=== PATIENT | female | born 1990 | race Caucasian/White ===

== ENCOUNTER 2025-07-17 11:41 | Emergency (ER) | payer OTHER, SELFPAY ==
--- OUTSIDE RECORDS SUMMARY | 2025-07-17 11:47 | XMS_ITS | Encounter Summary ---
Author Organization [facility] Healthcare Address [address] [place] [address] Care Team Providers Care Clinical Documentation Specialist Name Role Phone Sparkle Dash MD Unavailable Bob Garnett MD Primary Care Provider [phone] Encounter Details Date Type Department Care Team (Late st Contact Info) Description 11/20/2023 Documentation [facility] Physical Therapy [address] [place] [id number] Puneet Watkins, PT Social History Tobacco Use Types Packs/Day Years Used Date Smoking Tobacco: Every Day Cigarettes 0.8 19.6 Started: 2005 Alcohol Use Standard Drinks/Week Comments No 0 (1 standard drink = 0.6 oz pur e alcohol) Humiliation, Afraid, Rape, and Kick questionnair e Answer Date Recorded Within the last year, have y ou been afraid of your partner or ex-partner? No 10/23/2023 Within the last year, have y ou been humiliated or emotionally abused in other ways by your partner or ex-partner? No Within the last year, have y ou been kicked, hit, slapped, or otherwise physically hurt by your partner or ex-partner? No 10/23/2023 Within the last year, have y ou been raped or forced to have any kind of sexual activity by your partner or ex-partner? No 10/23/2023 Social Connection and Isolation Panel Answer Date Recorded In a typical week, how many times do you talk on the phone with family, friends, or neighbors? More than three times a week 01/06/2023 How often do you get togethe r with friends or relatives? Once a week 01/06/2023 How often do you attend chur ch or confucianism services? Never 01/06/2023 Do you belong to any clubs o r organizations such as pentecostalism groups, unions, fraternal or athletic groups, or school groups? No 01/06/2023 How often do you attend meet ings of the clubs or organizations you belong to? Never 01/06/2023 Are you , , di vorced, , never , or living with a partner? 01/06/2023 AUDIT-C Answer Date Recorded Q1: How often do you have a drink containing alcohol? Never 10/23/2023 Q2: How many drinks containi ng alcohol do you have on a typical day when you are drinking? Patient does not drink Q3: How often do you have si x or more drinks on one occasion? Never 10/23/2023 PHQ-2 Answer Date Recorded PHQ-2 Total Score (If total score is 3 or more points, staff should administer the PHQ-9) 0 10/23/2023 Hunger Vital Sign Answer Date Recorded Within the past 12 months, y ou worried that your food would run out before you got the money to buy more. Often true 01/06/20 23 Within the past 12 months, t he food you bought just didn't last and you didn't have money to get more. Often true 01/06/2023 PRAPARE - Transportation Answer Date Re corded In the past 12 months, has l ack of transportation kept you from medical appointments or from getting medications? No 12/25 In the past 12 months, has l ack of transportation kept you from meetings, work, or from getting things needed for daily living? No 01/06/2023 Housing Stability Vital Sign Answer Mihai e Recorded In the last 12 months, was t here a time when you were not able to pay the mortgage or rent on time? Yes 01/06/2023 In the last 12 months, how many places have you lived? 1 01/06/2023 In the last 12 months, was t here a time when you did not have a steady place to sleep or slept in a usp (including now)? No 01/06/2023 Personal Safety Answer Date Recorded Have you ever been in or are you currently in a harmful physical or emotional relationship or is someone making you feel afraid or unsafe? Denies 06/11/2023 Education Answer Date Recorded What is the highest level of school you have completed or the highest degree you have received? Some college, no degree 01/06/2023 Comments Unknown Sex and Gender Information Value Date Recorded Sex Assigned at Not on file Legal Sex Female 3:45 AM CAMPUS ADMINISTRATOR Gender Identity Not on file Sexual Orientation Not on file documented as of this encounter Plan of Treatment Not on file documented as of this encounter Visit Diagnoses Not on filedocumented in this encounter Care Teams Clinical Documentation Specialist Relationship Specialty Start Date End Date Bob Garnett MD [address] [place] [address] PCP - General Family Medicine 09/25/23 Sparkle Dash MD [address] [place] [address] Consulting Physician Gastroenterology 01/09/23 documented as of this encounter
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
--- OUTSIDE RECORDS SUMMARY | 2025-07-17 11:47 | XMS_ITS | Clinical Summary ---
Author Organization [facility] Address [address] [place] [address] Phone Care Team Providers Care Real Estate Director Name Role Phone Bob Garnett MD Primary Care Provider [phone] Allergies Active Allergy Reactions Criticality Noted Date Comments Codeine Unknown 05/15/2017 Ibuprofen Other (see Comments) 05/15/2017 thins my blood and causes nose bleeds Medications cyclobenzaprine (FLEXERIL) 5 MG Tablet Take 5 mg by mouth 3 times daily as needed. Active gabapentin (NEURONTIN) 300 MG Capsule Take 300 mg by mouth 3 times daily. Active methocarbamol (ROBAXIN) 500 MG Tablet Take 500 mg by mouth 3 times daily as needed (muscle spasm). Active ibuprofen (MOTRIN) 800 MG Tablet Take 800 mg by mouth 3 times daily as needed. Active metoprolol Succinate (TOPROL-XL) 25 MG TABLET SR 24 HR Take 1 Tablet by mouth daily. 90 Tablet 01/22/2024 Active spironolactone (ALDACTONE) 25 MG Tablet Take 1 Tablet by mouth daily. 90 Tablet 06/21/2024 Active Active Problems Problem Noted Date Diagnosed Date Acute respiratory failure with hypoxia Seizure disorder 01/20/2024 H/O ETOH abuse 01/20/2024 Congenital heart disease 01/20/2024 Chronic back pain 01/20/2024 Cervical radiculopathy 01/20/2024 Depression 01/20/2024 Drug overdose of undetermined intent 01/20/2024 Severe sepsis 01/20/2024 Social History Tobacco Use Types Packs/Day Years Used Date Smoking Tobacco: Every Day Cigarettes 0.3 10 Alcohol Use Standard Drinks/Week Comments No 0 (1 standard drink = 0.6 oz pur e alcohol) [place] Utilities Answer Date Recorded In the past 12 months has e electric, gas, oil, or water company threatened to shut off services in your home? Patient unable to answer 01/20/2024 Social Connection and Isolation Panel Answer Date Recorded In a typical week, how many times do you talk on the phone with family, friends, or neighbors? Patient unable to answer 01/20/2024 How often do you get togethe r with friends or relatives? Patient unable to answer 01/20/2024 How often do you attend chur ch or restorationism services? Patient unable to answer 01/20/2024 Do you belong to any clubs o r organizations such as latter day groups, unions, fraternal or athletic groups, or school groups? Patient unable to answer 01/20/2024 How often do you attend meet ings of the clubs or organizations you belong to? Patient unable to answer 01/20/2024 Are you , , di vorced, , never , or living with a partner? Patient unable to answer 01/20/2024 AUDIT-C Answer Date Recorded Q1: How often do you have a drink containing alcohol? Patient unable to answer 01/20/2024 Q2: How many drinks containi ng alcohol do you have on a typical day when you are drinking? Patient unable to answer Q3: How often do you have si x or more drinks on one occasion? Patient unable to answer 01/20/2024 Overall Financial Resource Strain (CARDIA) Answe r Date Recorded How hard is it for you to pa y for the very basics like food, housing, medical care, and heating? Patient unable to answer 01/20/2024 [facility] - Occupational Stress Questionnaire Answer Date Recorded Do you feel stress - tense, restless, nervous, or anxious, or unable to sleep at night because your mind is troubled all the time - these days? Patient unable to answer 01/20/2024 Exercise Vital Sign Answer Date Recorde d On average, how many days pe r week do you engage in moderate to strenuous exercise (like a brisk walk)? Patient unable to answer 01/20/2024 On average, how many minutes do you engage in exercise at this level? Patient unable to answer 01/20/2024 Hunger Vital Sign Answer Date Recorded Within the past 12 months, y ou worried that your food would run out before you got the money to buy more. Patient unable to answer 01/20/2024 Within the past 12 months, t he food you bought just didn't last and you didn't have money to get more. Patient unable to answer 01/20/2024 PRAPARE - Transportation Answer Date Re corded In the past 12 months, has l ack of transportation kept you from medical appointments or from getting medications? Patient unable to answer 01/20/2024 In the past 12 months, has l ack of transportation kept you from meetings, work, or from getting things needed for daily living? Patient unable to answer 01/20/2024 Housing Stability Vital Sign Answer Mihai e Recorded In the last 12 months, was t here a time when you were not able to pay the mortgage or rent on time? Patient unable to answer 01/20/2024 Number of Places Lived in the Last Year Not on f ile 01/20/2024 In the last 12 months, was t here a time when you did not have a steady place to sleep or slept in a group home (including now)? Patient unable to answer 01/20/2024 Comments Unknown Sex and Gender Information Value Date Recorded Sex Assigned at Not on file Legal Sex Female 8:07 PM CDT Gender Identity Not on file Sexual Orientation Not on file Last Filed Vital Signs Vital Sign Reading Time Taken Comments Blood Pressure 118/78 01/29/2024 11:48 AM MANAGER NURSING Pulse 82 01/29/2024 11:48 AM MANAGER NURSING Temperature 36.6 C (97.8 F) 01/29/2024 11:48 AM MANAGER NURSING Respiratory Rate 16 01/29/2024 11:48 AM MANAGER NURSING Oxygen Saturation 96% 01/29/2024 11:48 AM MANAGER NURSING Inhaled Oxygen Concentration - - Weight 66.7 kg (147 lb) 01/29/2024 11:48 AM MANAGER NURSING Height 167.6 cm (5' 6) 01/29/2024 11:48 AM MANAGER NURSING Body Mass Index 23.73 01/29/2024 11:48 AM MANAGER NURSING Plan of Treatment Health Maintenance Due Date Last Done Comments Hepatitis C Virus (HCV) Screening 1992 Pneumococcal Immunization Combined (1 of 2 - PCV) 2011 Pap Smear 2013 Cervical Cancer Screening (CCS) 2022 HPV/Cotest 2022 SARS-COV-2 Immunization ( - 2023- season) 2024 Influenza Immunization (#1) 2025 11/0 12/2022, 09/14/2018, 12/18/2016, Additional history exists Respiratory Syncytial Virus (RSV) Immunization (Adult) (1 - 1-dose 75+ series) 2067 Hepatitis B Immunization Completed 998, 08/17/1997, 05/12/1997 Meningococcal Immunization (ACWY) Aged Out 03/19/2007 No longer eligible based on patient's age to complete this topic Human Papillomavirus (HPV) Immunization Completed 09/22/2007, 05/19/2007, 03/19/2007 DTaP/Tdap/Td Immunization Discontinued 2017, 05/20/2015, 06/21/2003, Additional history exists TdaP Immunization Completed 04/03/2018, , 06/21/2003 Rotavirus Immunization Aged Out No lo nger eligible based on patient's age to complete this topic Insurance MEDICAID [employer] Advance Directives * Full Code (Latest Code Status on File) Date Activated Date Inactivated Comments 01/20/2024 4:17 AM 01/21/2024 3:18 PM CPR-Full Layo atment: FULL ARREST: Attempt Resuscitation/CPR wit intubation and mechanical ventilation. PRE-ARREST: Use entire range of life support measures to stabilize the patient. Care Teams Real Estate Director Relationship Specialty Start Date End Date Bob Garnett MD [address] [facility] [address] [address] PCP - General Youth Accommodation Support Worker 01/20/24
--- OUTSIDE RECORDS SUMMARY | 2025-07-17 11:47 | XMS_ITS | Encounter Summary ---
Author Organization [facility] Address [address] [place] [address] Phone Care Team Providers Care Router Operator Radial Name Role Phone Silvino, Evelyn Olmos NP Primary Care Provider [phone] Sparkle Dash MD Unavailable No, Physician Primary Care Provider [phone] Bob Garnett MD Primary Care Provider [phone] Encounter Details Date Type Department Care Team (Latest Contact Info) Description 03/18/2018 Orders Only [facility] CONVERSION Scanning, Provider Social History Tobacco Use Types Packs/Day Years Used Date Smoking Tobacco: Every Day Comments Unknown Sex and Gender Information Value Date Recorded Sex Assigned at Not on file Legal Sex Female 3:45 AM PROGRAM AIDE GROUP WORK Gender Identity Not on file Sexual Orientation Not on file documented as of this encounter Plan of Treatment Not on file documented as of this encounter Procedures Procedure Name Priority Date/Time Associated Diagnosis Comments OBSTETRIC/GYNECOLOGY ULTRASONOGRAPHY REPORT 04/15/2018 10:09 AM CDT OBSTETRIC/GYNECOLOGY ULTRASONOGRAPHY REPORT 03/25/2018 2:54 PM CDT OBSTETRIC/GYNECOLOGY ULTRASONOGRAPHY REPORT 03/18/2018 2:15 PM CDT documented in this encounter Results * OBSTETRIC/GYNECOLOGY ULTRASONOGRAPHY REPORT (04/15/2018 10:09 AM CDT) Anatomical Region Laterality Modality Ultrasound us Provider Scanning IMG OB US PROCEDURES Final Res ult * OBSTETRIC/GYNECOLOGY ULTRASONOGRAPHY REPORT (03/25/2018 2:54 PM CDT) Anatomical Region Laterality Modality Ultrasound us Provider Scanning IMG OB US PROCEDURES Final Res ult * OBSTETRIC/GYNECOLOGY ULTRASONOGRAPHY REPORT (03/18/2018 2:15 PM CDT) Anatomical Region Laterality Modality Ultrasound us Provider Scanning IMG OB US PROCEDURES Final Res ult documented in this encounter Visit Diagnoses Not on filedocumented in this encounter Additional Health Concerns Infection Onset Date Last Indicated Resolved Time COVID: Suspected 01/04/2023 01/04/2023 01/04/2023 9:02 AM PROGRAM AIDE GROUP WORK documented as of this encounter Care Teams Router Operator Radial Relationship Specialty Start Date End Date Evelyn Dubois NP [address] [facility] [address] [place] [address] PCP - General 01/08/18 06/10/23 No, Physician PCP - General 06/11/23 09/24/23 Bob Garentt MD [address] [facility] [address] [place] [address] PCP - General Family Medicine 09/25/23 Sparkle Dash MD [address] [facility] [address] [place] [address] Consulting Physician Gastroenterology 01/09/23 documented as of this encounter
--- OUTSIDE RECORDS SUMMARY | 2025-07-17 11:47 | XMS_ITS | Encounter Summary ---
Author Organization [facility] Address [address] [place] [address] Phone Care Team Providers Care Production Mechanic Tin Cans Name Role Phone Silvino, Evelyn Olmos NP Primary Care Provider [phone] Sparkle Dash MD Unavailable No, Physician Primary Care Provider [phone] Bob Garnett MD Primary Care Provider [phone] Encounter Details Date Type Department Care Team (Latest Contact Info) Description 01/09/2018 Orders Only [facility] CONVERSION Scanning, Provider Social History Tobacco Use Types Packs/Day Years Used Date Smoking Tobacco: Every Day Comments Unknown Sex and Gender Information Value Date Recorded Sex Assigned at Not on file Legal Sex Female 3:45 AM RUSSIAN LANGUAGE INSTRUCTOR Gender Identity Not on file Sexual Orientation Not on file documented as of this encounter Plan of Treatment Not on file documented as of this encounter Procedures Procedure Name Priority Date/Time Associated Diagnosis Comments OBSTETRIC/GYNECOLOGY ULTRASONOGRAPHY REPORT 02/06/2018 1:24 PM CDT OBSTETRIC/GYNECOLOGY ULTRASONOGRAPHY REPORT 01/30/2018 4:50 PM RUSSIAN LANGUAGE INSTRUCTOR OBSTETRIC/GYNECOLOGY ULTRASONOGRAPHY REPORT 01/09/2018 5:44 PM RUSSIAN LANGUAGE INSTRUCTOR documented in this encounter Results * OBSTETRIC/GYNECOLOGY ULTRASONOGRAPHY REPORT (02/06/2018 1:24 PM CDT) Anatomical Region Laterality Modality Ultrasound us Provider Scanning IMG OB US PROCEDURES Final Res ult * OBSTETRIC/GYNECOLOGY ULTRASONOGRAPHY REPORT (01/30/2018 4:50 PM RUSSIAN LANGUAGE INSTRUCTOR) Anatomical Region Laterality Modality Ultrasound us Provider Scanning IMG OB US PROCEDURES Edited Re sult - Final * OBSTETRIC/GYNECOLOGY ULTRASONOGRAPHY REPORT (01/09/2018 5:44 PM RUSSIAN LANGUAGE INSTRUCTOR) Anatomical Region Laterality Modality Ultrasound us Provider Scanning IMG OB US PROCEDURES Final Res ult documented in this encounter Visit Diagnoses Not on filedocumented in this encounter Additional Health Concerns Infection Onset Date Last Indicated Resolved Time COVID: Suspected 01/04/2023 01/04/2023 01/04/2023 9:02 AM RUSSIAN LANGUAGE INSTRUCTOR documented as of this encounter Care Teams Production Mechanic Tin Cans Relationship Specialty Start Date End Date Evelyn Dubois NP [address] [place] [address] PCP - General 01/08/18 06/10/23 No, Physician PCP - General 06/11/23 09/24/23 Bob Garnett MD [address] [facility] [address] [place] [address] PCP - General Family Medicine 09/25/23 Sparkle Dash MD [address] [facility] [address] [place] [address] Consulting Physician Gastroenterology 01/09/23 documented as of this encounter
--- OUTSIDE RECORDS SUMMARY | 2025-07-17 11:47 | XMS_ITS | Encounter Summary ---
Author Organization [facility] Address [address] [place] [address] Care Team Providers Care Inspector Final Assembly Conveyor Line Name Role Phone Sparkle Dash MD Unavailable Bob Garnett MD Primary Care Provider [phone] Reason for Visit * Reason Onset Date Comments PMC Preprocedure 02/16/2024 My Chart pre ca ll Encounter Details Date Type Department Care Team (Late st Contact Info) Description 02/16/2024 Telephone [facility] [address] [facility] [address] [place] [address] Savi Nolan MD [address] [place], [place] [id number] PMC Preprocedure (My Chart pre call) Social History Tobacco Use Types Packs/Day Years Used Date Smoking Tobacco: Every Day Cigarettes 0.5 19.6 Started: 2006 Alcohol Use Standard Drinks/Week Comments No 0 [...] How often do you attend chur or sikh services? Never 01/06/2023 Do you belong to any clubs o r organizations such as roman catholic groups, unions, fraternal or athletic groups, or school groups? No 01/06/2023 How often do you attend meet ings of the clubs or organizations you belong to? Never 01/06/2023 Are you , , di vorced, , never , or living with a partner? 01/06/2023 AUDIT-C Answer Date Recorded Q1: How often do you have a drink containing alcohol? Never 02/18/2024 Q2: How many drinks containi ng alcohol do you have on a typical day when you are drinking? Patient does not drink Q3: How often do you have si x or more drinks on one occasion? Never 02/18/2024 PHQ-2 Answer Date Recorded PHQ-2 Total Score (If total score is 3 or more points, staff should administer the PHQ-9) 0 12/29/2023 Hunger Vital Sign Answer Date Recorded Within the past 12 months, y ou worried that your food would run out before you got the money to buy more. Often true 01/06/20 Within the past 12 months, t he [...] place to sleep or slept in a senior care (including now)? No 01/06/2023 Personal Safety Answer [...] on file Legal Sex Female 3:45 AM SPECIAL LIBRARY LIBRARIAN Gender Identity Not on file Sexual Orientation Not on file documented as of this encounter Functional Status documented as of this encounter Plan of Treatment Not on file documented as of this encounter Goals Goal Patient Goal Type Associated Problems Recent Progress Patient-Stated? Author CCM Chronic Pain Care Plan Chronic Care Management Worsening( 9:33 AM CDT) No Marylou Cartwright, XU Note: Problem: Chronic Pain Goals: 1. Minimize further functional decline 2. Maximize quality of life 3. Control pain Strategies: - Activity/exercise program recommendation - Conservative stepwise pain medicine strategy with multi-disciplinary approach - Recommend healthy lifestyle strategies and compensatory methods as needed documented as of this encounter Visit Diagnoses Not on filedocumented in this encounter Care Teams Inspector Final Assembly Conveyor Line Relationship Specialty Start Date End Date Bob Garnett MD [address] [facility] [address] [place] [address] PCP - General Family Medicine 09/25/23 Sparkle Dash MD [address] [facility] [address] [place] [address] Consulting Physician Gastroenterology 01/09/23 documented as of this encounter
--- OUTSIDE RECORDS SUMMARY | 2025-07-17 11:47 | XMS_ITS | Encounter Summary ---
Author Organization [facility] Address [address] [place] [address] Phone Care Team Providers Care Filter Press Tender Name Role Phone Miscellaneous, Not In File Primary Care Provider Unavailable Dubois, Evelyn Olmos NP Primary Care Provider [phone] Sparkle Dash MD Unavailable No, Physician Primary Care Provider [phone] Bob Garnett MD Primary Care Provider [phone] Encounter Details Date Type Department Care Team (Latest Contact Info) Description 05/12/2017 Orders Only [facility] CONVERSION Scanning, Provider Social History Tobacco Use Types Packs/Day Years Used Date Smoking Tobacco: Never Assessed Comments Unknown Sex and Gender Information Value Date Recorded Sex Assigned at Not on file Legal Sex Female 3:45 AM DAY CARE CENTER DIRECTOR Gender Identity Not on file Sexual Orientation Not on file documented as of this encounter Plan of Treatment Not on file documented as of this encounter Procedures Procedure Name Priority Date/Time Associated Diagnosis Comments OBSTETRIC/GYNECOLOGY ULTRASONOGRAPHY REPORT 05/23/2017 4:50 PM CDT OBSTETRIC/GYNECOLOGY ULTRASONOGRAPHY REPORT 05/12/2017 3:56 PM CDT documented in this encounter Results * OBSTETRIC/GYNECOLOGY ULTRASONOGRAPHY REPORT (05/23/2017 4:50 PM CDT) Anatomical Region Laterality Modality Ultrasound us Provider Scanning IMG OB US PROCEDURES Final Res ult * OBSTETRIC/GYNECOLOGY ULTRASONOGRAPHY REPORT (05/12/2017 3:56 PM CDT) Anatomical Region Laterality Modality Ultrasound us Provider Scanning IMG OB US PROCEDURES Final Res ult documented in this encounter Visit Diagnoses Not on filedocumented in this encounter Additional Health Concerns Infection Onset Date Last Indicated Resolved Time COVID: Suspected 01/04/2023 01/04/2023 01/04/2023 9:02 AM DAY CARE CENTER DIRECTOR documented as of this encounter Care Teams Filter Press Tender Relationship Specialty Start Date End Date Miscellaneous, Not In File PCP - General 05/07/17 Evelyn Dubois NP [address] [facility] [address] [place], [place] [id number] PCP - General 01/08/18 06/10/23 No, Physician PCP - General 06/11/23 09/24/23 Bob Garnett MD [address] [facility] [address] [place] [address] PCP - General Family Medicine 09/25/23 Sparkle Dash MD [address] [facility] [address] [place] [address] Consulting Physician Gastroenterology 01/09/23 documented as of this encounter
--- OUTSIDE RECORDS SUMMARY | 2025-07-17 11:47 | XMS_ITS | Encounter Summary ---
Author Organization [facility] Address [address] [place] [address] Phone Care Team Providers Care Wrapping Machine Tender Name Role Phone Miscellaneous, Not In File Primary Care Provider Unavailable Dubois, Evelyn Olmos NP Primary Care Provider [phone] Sparkle Dash MD Unavailable No, Physician Primary Care Provider [phone] Bob Garnett MD Primary Care Provider [phone] Encounter Details Date Type Department Care Team (Latest Contact Info) Description 12/03/2017 Orders Only [facility] CONVERSION Scanning, Provider Social History Tobacco Use Types Packs/Day Years Used Date Smoking Tobacco: Never Assessed Comments Unknown Sex and Gender Information Value Date Recorded Sex Assigned at Not on file Legal Sex Female 3:45 AM GENERAL LABORER Gender Identity Not on file Sexual Orientation Not on file documented as of this encounter Plan of Treatment Not on file documented as of this encounter Procedures Procedure Name Priority Date/Time Associated Diagnosis Comments OBSTETRIC/GYNECOLOGY ULTRASONOGRAPHY REPORT 12/03/2017 1:13 PM GENERAL LABORER documented in this encounter Results * OBSTETRIC/GYNECOLOGY ULTRASONOGRAPHY REPORT (12/03/2017 1:13 PM GENERAL LABORER) Anatomical Region Laterality Modality Ultrasound us Provider Scanning IMG OB US PROCEDURES Final Res ult documented in this encounter Visit Diagnoses Not on filedocumented in this encounter Additional Health Concerns Infection Onset Date Last Indicated Resolved Time COVID: Suspected 01/04/2023 01/04/2023 01/04/2023 9:02 AM GENERAL LABORER documented as of this encounter Care Teams Wrapping Machine Tender Relationship Specialty Start Date End Date Miscellaneous, Not In File PCP - General 05/07/17 Evelyn Dubois NP [address] [place] [address] PCP - General 01/08/18 06/10/23 No, Physician PCP - General 06/11/23 09/24/23 Bob Garnett MD [address] [facility] [address] [place] [address] PCP - General Family Medicine 09/25/23 Sparkle Dash MD [address] [facility] [address], [place] [address] Consulting Physician Gastroenterology 01/09/23 documented as of this encounter
--- OUTSIDE RECORDS SUMMARY | 2025-07-17 11:47 | XMS_ITS | Encounter Summary ---
Author Organization [facility] Address [address] [place] [address] Phone Care Team Providers Care Consulting Group Analyst Name Role Phone Miscellaneous, Not In File Primary Care Provider Unavailable Dubois, Evelyn Olmos NP Primary Care Provider [phone] Sparkle Dash MD Unavailable No, Physician Primary Care Provider [phone] Bob Garnett MD Primary Care Provider [phone] Encounter Details Date Type Department Care Team (Latest Contact Info) Description 10/13/2017 Orders Only [facility] CONVERSION Scanning, Provider Social History Tobacco Use Types Packs/Day Years Used Date Smoking Tobacco: Never Assessed Comments Unknown Sex and Gender Information Value Date Recorded Sex Assigned at Not on file Legal Sex Female 3:45 AM PHLEBOTOMIST MEDICAL LAB ASSISTANT Gender Identity Not on file Sexual Orientation Not on file documented as of this encounter Plan of Treatment Not on file documented as of this encounter Procedures Procedure Name Priority Date/Time Associated Diagnosis Comments OBSTETRIC/GYNECOLOGY ULTRASONOGRAPHY REPORT 10/13/2017 10:09 AM PHLEBOTOMIST MEDICAL LAB ASSISTANT documented in this encounter Results * OBSTETRIC/GYNECOLOGY ULTRASONOGRAPHY REPORT (10/13/2017 10:09 AM PHLEBOTOMIST MEDICAL LAB ASSISTANT) Anatomical Region Laterality Modality Ultrasound us Provider Scanning IMG OB US PROCEDURES Final Res ult documented in this encounter Visit Diagnoses Not on filedocumented in this encounter Additional Health Concerns Infection Onset Date Last Indicated Resolved Time COVID: Suspected 01/04/2023 01/04/2023 01/04/2023 9:02 AM PHLEBOTOMIST MEDICAL LAB ASSISTANT documented as of this encounter Care Teams Consulting Group Analyst Relationship Specialty Start Date End Date Miscellaneous, Not In File PCP - General 05/07/17 Evelyn Dubois NP [address] [facility] [address] [place], [place] [id number] PCP - General 01/08/18 06/10/23 No, Physician PCP - General 06/11/23 09/24/23 Bob Garnett MD [address] [facility] [address] [place] [address] PCP - General Family Medicine 09/25/23 Sparkle Dash MD [address] [facility] [address] [place] [address] Consulting Physician Gastroenterology 01/09/23 documented as of this encounter
--- OUTSIDE RECORDS SUMMARY | 2025-07-17 11:47 | XMS_ITS | Encounter Summary ---
Author Organization [facility] Address [address] [place] [address] Phone Care Team Providers Care Mud Analysis Well Logging Operator Name Role Phone Silvino, Evelyn Olmos NP Primary Care Provider [phone] Sparkle Dash MD Unavailable No, Physician Primary Care Provider [phone] Bob Garnett MD Primary Care Provider [phone] Encounter Details Date Type Department Care Team (Latest Contact Info) Description 02/11/2018 Orders Only [facility] CONVERSION Scanning, Provider Social History Tobacco Use Types Packs/Day Years Used Date Smoking Tobacco: Every Day Comments Unknown Sex and Gender Information Value Date Recorded Sex Assigned at Not on file 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 [employer] Gender Identity Not on file Sexual Orientation Not on file documented as of this encounter Plan of Treatment Not on file documented as of this encounter Procedures Procedure Name Priority Date/Time Associated Diagnosis Comments OBSTETRIC/GYNECOLOGY ULTRASONOGRAPHY REPORT 03/11/2018 4:32 PM CDT OBSTETRIC/GYNECOLOGY ULTRASONOGRAPHY REPORT 03/04/2018 3:12 PM CDT OBSTETRIC/GYNECOLOGY ULTRASONOGRAPHY REPORT 02/11/2018 9:23 AM CDT documented in this encounter Results * OBSTETRIC/GYNECOLOGY ULTRASONOGRAPHY REPORT (03/11/2018 4:32 PM CDT) Anatomical Region Laterality Modality Ultrasound us Provider Scanning IMG OB US PROCEDURES Final Res ult * OBSTETRIC/GYNECOLOGY ULTRASONOGRAPHY REPORT (03/04/2018 3:12 PM CDT) Anatomical Region Laterality Modality Ultrasound us Provider Scanning IMG OB US PROCEDURES Final Res ult * OBSTETRIC/GYNECOLOGY ULTRASONOGRAPHY REPORT (02/11/2018 9:23 AM CDT) Anatomical Region Laterality Modality Ultrasound us Provider Scanning IMG OB US PROCEDURES Final Res ult documented in this encounter Visit Diagnoses Not on filedocumented in this encounter Additional Health Concerns Infection Onset Date Last Indicated Resolved Time COVID: Suspected 01/04/2023 01/04/2023 01/04/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
[2025-07-17 11:55] VITALS: BP 113/73; PULSE 73; RESP 16; TEMP 36.6; O2SAT 98
--- NOTE | 2025-07-17 11:59 | ED_ITS ---
HPI - URI/Sore Throat General Chief Complaint: Upper Respiratory Infection Stated Complaint: Problem with Throat Time Seen by Provider: 07/17/25 12:01 Source: patient and RN notes reviewed Mode of arrival: ambulatory Limitations: no limitations History of Present Illness HPI Narrative: 34-year-old female presents concern for hoarse voice. Reports that started 4 days ago and has gotten worse. She denies pain, postnasal drainage, sore throat, runny nose, stuffy nose, difficulty swallowing. She denies any swollen lips or tongue. She has used hot tea, honey and cough drops MD elicited complaint: other (Hoarse voice) Related Data Allergies Allergy/AdvReac Type Severity Reaction Status Date / Time codeine Allergy Unknown FACE Verified 04/11/17 18:11 SWELLING ibuprofen AdvReac Mild Verified 04/11/17 18:11 Review of Systems Review of Systems: CONSTITUTIONAL: Denies malaise, chills, sweats, or fever. EYES: Denies visual changes, redness, or discharge. ENT: Denies rhinorrhea, congestion, sinus pain, otalgia and sore throat. Reports hoarse voice CARDIOVASCULAR: Denies chest pain, palpitations, or edema. RESPIRATORY: Denies cough. Denies dyspnea. GASTROINTESTINAL: Denies abdominal pain, nausea, vomiting, diarrhea SKIN: Denies rash or itching. MUSCULOSKELETAL: Denies myalgia. NEUROLOGIC: Denies headache. All systems reviewed & are unremarkable except as noted in HPI and below PMFSH Comments At time of signature, agree with nursing past medical, surgical, social and family history. There is no relevant family history pertinent to the presenting complaint Exam Narrative: GENERAL: Well-appearing, well-nourished, and in no acute distress. HEAD: Normocephalic EYES: PERRLA, conjunctivae clear ENT: Nares clear, turbinates clear with no discharge. Mucous membranes moist. TM pearly schreiber with sharp light reflex bilaterally; no tragal tenderness. Oropharynx not erythematous without lesions. Tonsils not enlarged and without exudate, no drooling, mild hoarseness, no trismus, uvula midline. NECK: Supple. No lymphadenopathy CHEST: Clear to auscultation, breath sounds equal. No wheezing, rhonchi, rales, or stridor. No respiratory distress, speaks in full sentences. HEART: Regular rate and rhythm. No murmur heard. SKIN: Warm, dry, no rash. NEURO: Alert and oriented x3. PSYCH: Normal mood and affect Course Course Emergency Course: Patient is aware of diagnosis, understands and agrees to treatment plan. Anticipatory guidance given. Patient agrees to follow-up as directed and is aware of reasons to seek care at the emergency department. Portions of this record may have been created with voice recognition software Level of Care: Express Care Visit Vital Signs Vital signs: Vital Signs Temperature 98 F 07/17/25 11:55 Pulse Rate 73 07/17/25 11:55 Respiratory Rate 16 07/17/25 11:55 Blood Pressure 113/73 07/17/25 11:55 Pulse Oximetry 98 07/17/25 11:55 Oxygen Delivery Room Air 07/17/25 11:55 Temperature 98 F 07/17/25 11:55 Pulse Rate 73 07/17/25 11:55 Respiratory Rate 16 07/17/25 11:55 Blood Pressure 113/73 07/17/25 11:55 Pulse Oximetry 98 07/17/25 11:55 Oxygen Delivery Room Air 07/17/25 11:55 Reviewed. MDM - URI/Sore Throat MDM Narrative Medical decision making narrative: Differential diagnosis considered: Barnes virus, strep pharyngitis, allergic rhinitis, upper respiratory tract infection, sinusitis, rhinosinusitis, nasopharyngitis. viral pharyngitis, otitis media, otitis externa, pneumonia, bronchitis, viral cough syndrome, viral syndrome, and influenza. Exam findings show no acute concerns or changes; patient is non-toxic appearing and is in no distress. Patient is appropriate for outpatient treatment and follow-up. Lab Data Attestation: I reviewed the patient's lab results. Critical Care Time Critical Care Time Critical Care Time: No Discharge Plan Discharge Clinical Impression: Hoarseness of voice Patient Disposition: Home Condition: Stable Instructions: General Patient Instructions Additional Instructions: 1) Please follow-up with your primary care doctor in the next 1-2 days. 2) If you have any urgent concerns please go to the ER. 3) Please take ibuprofen as needed. You can drink hot tea and honey as needed for comfort. Patient Language: Amharic Follow-up/Referrals: Mariola,MD Bob [Primary Care Provider, Unknown] Time of Disposition: 12:10
== END 2025-07-17 12:13 | disposition home or self-care (01) ==
PROVIDERS: Emergency Provider Nurse Practitioner; PCP Family Medicine
DX: R49.0 Dysphonia (principal)
CPT/HCPCS: 99202; G0463